=== PATIENT | female | born 1990 | race Caucasian/White ===

== ENCOUNTER 2022-06-19 07:25 | Outpatient (CLI) | payer BC, SELFPAY ==
--- NOTE | 2022-06-19 07:15 | CRLHL7_ITS ---
For Patients: As a result of the Cures Act, medical imaging exams and procedure reports are released immediately into your electronic medical record. You may view this report before your referring provider. If you have questions, please contact your health care provider. INDICATION: First trimester scan, establish dates. COMPARISON: None. TECHNIQUE: Real-time rios-scale imaging of the pelvis was performed. FINDINGS: Sonographic imaging demonstrates a single living intrauterine gestation. The embryo demonstrates a regular cardiac rate measuring 174 beats per minute. The embryo`s crown-rump length measurement of 2.3 cm corresponds to a gestational age of 9 weeks 0 days with a sonographic due date of 01/22/2023. There is a normal-appearing yolk sac. There are no gross abnormalities noted within the embryo at this early state of development. The gestational sac has a normal appearance. There is no evidence of a perigestational hemorrhage. The amount of fluid within the sac appears appropriate for gestational age. The cervix is closed. The myometrium appears normal. The ovaries are of normal size. Corpus luteal cyst right ovary. There are no suspicious fluid collections noted in the cul-de-sac. IMPRESSION: Normal first trimester OB ultrasound exam. Gestational age calculated at 9 weeks 0 days with a sonographic due date of 01/22/2023. Dictated by Moustapha Smith MD @ 06/19/2022 8:24:38 AM (Electronically Signed)
[2022-06-19 11:23] LABS: HIV 1/2/P24 Combo Screen* Negative (Negative)
[2022-06-19 15:27] LABS: Hepatitis B Surface Antigen* Negative (Negative)
[2022-06-19 15:44] LABS: Hepatitis C Virus Antibody* Negative (Negative)
[2022-06-20 17:45] LABS: Rapid Plasma Reagin (RPR) Non Reactive (Non Reactive)
[2022-06-20 23:40] LABS: Rubella Antibody IgG 8.5 IU/mL
== END 2022-06-19 07:26 | disposition home or self-care (01) ==
LOC: US 07:26
PROVIDERS: Visit Provider Physician Assistant
DX: Z34.91 Encounter for supervision of normal pregnancy, unspecified, first trimester (principal); Z3A.09 9 weeks gestation of pregnancy
CPT/HCPCS: 36415; 76817; 86592; 86703; 86762; 86803; 86850; 86900; 86901; 87086; 87340; 87491; 87591

== ENCOUNTER 2022-09-01 07:13 | Outpatient (CLI) | payer BC, SELFPAY ==
--- NOTE | 2022-09-01 07:15 | CRLHL7_ITS ---
For Patients: As a result of the Century Cures Act, medical imaging exams and procedure reports are released immediately into your electronic medical record. You may view this report before your referring provider. If you have questions, please contact your health care provider. INDICATION: Evaluate anatomy. COMPARISON: 06/19/22 TECHNIQUE: Real time rios scale imaging of the fetus was performed as well as color Doppler analysis of the umbilical vessels. FINDINGS: Sonographic imaging demonstrates a single living intrauterine gestation. Fetus demonstrates a regular cardiac rate of 149 beats per minute. Fetus has a vertex position. The placenta lies posteriorly without evidence of placenta previa. The edge of the placenta is located 5.2 cm from the internal cervical os. Amniotic fluid volume appears normal. Single deepest vertical pocket: 4.5 cm. The cervix is closed and measures 4.3 cm in length. The composite ultrasound gestational age is calculated at 20 weeks 0 days with an estimated sonographic due date of 01/19/2023. The estimated weight is 324 grams which lies at the 77th %. The following biometric measurements were obtained: Biparietal diameter: 4.4 cm/19 weeks 1 day 39th% Head circumference: 16.7 cm/19 weeks 3 days 41st% Abdominal circumference: 15.1 cm/20 weeks 2 days 74th% Femur length: 3.2 cm/19 weeks 6 days 56th% The HC/AC ratio measures: 1.11 range (1.08-1.25) On anatomic survey, there is a normal appearance of the cerebral ventricles, cavum septi pellucidi, cisterna magna and cerebellum. The nose, lips, and facial profile appear normal. The cervical, thoracic and lumbar spine are well visualized and appear normal. There is a normal four-chamber heart view and the left and right ventricular outflow tracts appear normal. The diaphragm and stomach appear normal. The kidneys and bladder also appear normal. There is a normal three-vessel cord and cord insertion site. The four extremities appear normal. IMPRESSION: Normal OB ultrasound exam with concordance of clinical and sonographic dating. No intrinsic abnormalities noted on anatomic survey. Dictated by Moustapha Smith MD @ 09/01/2022 10:31:55 AM (Electronically Signed)
== END 2022-09-01 07:14 | disposition home or self-care (01) ==
PROVIDERS: Visit Provider Advanced Practice Midwife
DX: Z34.92 Encounter for supervision of normal pregnancy, unspecified, second trimester (principal); Z3A.20 20 weeks gestation of pregnancy
CPT/HCPCS: 76805

== ENCOUNTER 2022-10-30 08:42 | Outpatient (CLI) | payer BC, SELFPAY ==
[2022-10-31 23:55] LABS: Rapid Plasma Reagin (RPR) Non Reactive (Non Reactive)
== END 2022-10-30 08:43 | disposition home or self-care (01) ==
LOC: NFLDREF 08:43
PROVIDERS: Visit Provider Advanced Practice Midwife
DX: Z34.90 Encounter for supervision of normal pregnancy, unspecified, unspecified trimester (principal)
CPT/HCPCS: 86592

== ENCOUNTER 2023-01-01 09:43 | Outpatient (CLI) | payer BC, SELFPAY ==
[2023-01-02 12:14] LABS: Strep B DNA Probe NEGATIVE (Negative)
[2023-01-02 13:41] LABS: Strep B Pen/Amox Allergy No
== END 2023-01-01 09:44 | disposition home or self-care (01) ==
LOC: NFLDREF 09:43
PROVIDERS: Visit Provider Advanced Practice Midwife
DX: Z34.93 Encounter for supervision of normal pregnancy, unspecified, third trimester (principal); Z3A.36 36 weeks gestation of pregnancy
CPT/HCPCS: 87081; 87653

== ENCOUNTER 2023-01-29 22:01 | Inpatient (IN) | payer BC, SELFPAY ==
[2023-01-29] VITALS (17 sets, daily range): BP systolic 101–126; BP diastolic 65–88; PULSE 74–104; O2SAT 91–99; BMI 31.6
[2023-01-29 22:06] LABS: SARS PCR* Negative SARS-CoV-2 (Negative)
--- NOTE | 2023-01-29 22:32 | W.PM.LDBA ---
Subjective History of Present Illness Time Seen by Provider: 20:45 Date Seen: 01/29/23 Comments: Patient is being admitted to Labor and Delivery for early labor, hx of precipitous . She is a 32 year old at 40.6 weeks gestation. Her full history and physical was dictated by Mela on 01/08/23. Please see this for details. She was seen in the office today for an appointment. Ctx started yesterday, continued through last night, but she was able to sleep. This morning ctx seemed more spaced out, but stronger. She did have a membrane sweep in the office today. This afternoon, ctx noted to be more intense. ? She is coping well with labor pain/contractions. Her partner is with her for support. She is planning epidural for pain management. OB Problem List: H&P done by [facility] on 01/08/23 1. Family history of Down syndrome, patient's brother recently had a child the Down syndrome Maternity T21: neg, boy! 2. Rubella nonimmune MMR 3. Lower back pain - PT referral 10/02/22 4. History of heavy epidurals - would like to discuss light epidural with anesthesia - consult done 12/09 5. Wants expectant management at 41 weeks BPP scheduled for 01/29 OB - Problem Based A/P Additional Plan (1) Uterine contractions: Status: Acute (2) History of vacuum extraction assisted delivery: Status: Acute Plan at 40.6 weeks GBS neg Early labor Hx of precipitous Hx of vacuum assisted r/t FHTs problems: -Rubella non immune, needs vaccine PP 1. Admit to L & D 2. Monitoring per protocol, intermittent at this time, continuous once epidural placed 3. IV placed for epidural 4. Candidate for analgesia of choice. Planning epidural for pain management. Does not want it to be very dense, as it has been in the past. 5. Anticipate progress to NVD. Delivery/Labor/Induction Plan Plan: expectant management OB Exam Physical Exam Vital signs: Pulse BP 82 115/78 01/29/23 20:40 01/29/23 20:40 Narrative: VSS, afebrile? General Appearance:? Calm, cooperative.? No acute distress.? Normal affect.? Psychiatric Exam: Alert and oriented, appropriate affect? HEENT: normocephalic, neck supple, full ROM? Respiratory:? Symmetrical chest wall movement.? Normal respiratory effort.? Clear to auscultation? Cardiac:? regular rate and rhythm? Abdomen: Gravid, non tender? Extremities:? normal and trace edema? Skin: warm, dry.??? Ctx:? irregular, not tracing well on monitor. Q 5 mins per pt. Stops to breathe through them when they occur FHTs:? Baseline: 140.? Variability: mod.?? Accels: present.??? Decels:? none.? SVE: ?/ Membranes: intact? Detailed Labor and Delivery Exam Patient Gravid: Yes
[2023-01-29] MEDS: LACTATED RINGERS 1000 ML 1,000 ML IV (22:53)
[2023-01-29] MEDS: ROPIVACAINE 0.2% 100 ml 100 ML 12 MG EPIDURAL (23:32)
[2023-01-29] MEDS: ROPIVACAINE 0.2 % PF 10 ML INJ 20 MG EPIDURAL (23:33)
--- NOTE | 2023-01-29 23:38 | P.ANBPRC_ITS ---
[facility] Medical History History of abnormal cervical Papanicolaou smear (2010) History of vaginal delivery Injury of back (08/01/12) Vacuum-assisted vaginal delivery Surgical History History of colposcopy (2011) Family History Father Celiac disease Brother Celiac disease High blood pressure Ulcerative colitis Maternal Grandmother Diabetes Parkinson's disease Mother Infertility Paternal Grandmother Stomach cancer Social History (Updated 01/08/23 @ 13:34 by Lillian Kraus CNM) Narrative: SOCIAL HISTORY: Occupation: Poultry Processor. Marital status: , Alexi. Taoist/cultural needs: No. Chemical or radiation exposure: no. Pre- tobacco use: no. Pre- alcohol use: Less than 1 per day. Current tobacco use: no. Current alcohol use: no. Recreational drug use: no. Dietary restrictions: Gluten free. Blood transfusion acceptable in an emergency: yes . FAMILY AND GENETIC HISTORY: Negative for recurrent loss, defects. Her brother recently had a baby with Down syndrome PSYCHOSOCIAL HISTORY: History of depression or currently depresses: no. Current physical, emotional, or sexual mistreatment: no. Problems that will make it hard to make it to appointments: no. Smoking Status: Never smoker Little interest or pleasure in doing things: not at all Feeling down, depressed, or hopeless: not at all Meds Home Medications and Allergies Home Medications Medication Instructions Recorded Confirmed Type docosahexaenoic acid 200 mg 200 mg PO DAILY 06/19/22 01/29/23 History capsule ( DHA) Allergies Allergy/AdvReac Type Severity Reaction Status Date / Time gluten AdvReac Mild Gastrointestinal Verified 01/29/23 11:40 Upset Results Labs Labs: Laboratory Results - last 24 hr 01/29/23 19:31 SARS-CoV-2 (PCR) Negative SARS-CoV-2 Vital Signs Vital Signs: Last Vital Signs Pulse 88 01/29/23 23:37 BP 112/74 01/29/23 23:37 Pulse Ox 98 01/29/23 23:37 Weight: 91.626 kg Height: 170.18 cm Anesthesia Procedures Epidural Insertion Patient Location: OB Start Time: 22:50 Stop Time: 23:38 Start Date: 01/29/23 Stop Date: 01/29/23 Reason for Block: procedure for pain Patient Position: sitting Performed By: Fritz Montoya Preanesthetic Checklist: IV checked, risks and benefits discussed, surgical consent, monitors and equipment checked, pre-op evaluation, timeout performed and anesthesia consent Prep: chlorhexidine gluconate Monitoring: blood pressure monitoring, continuous pulse oximetry and heart rate Approach: midline Vertebral Space: lumbar (1-5) Epidural Technique: SHAWNA air Needle Type: Tuohy needle Injection Technique: continuous catheter Needle gauge: 17 Needle Length (cm): 10 cm Needle Insertion Depth (cm): 7 Catheter Gauge: 19 Catheter Type: multi-orifice Catheter at skin depth (cm): 13 Test Dose Result: negative and lidocaine 1.5% with epinephrine 1 to 200,000
[2023-01-30] VITALS (27 sets, daily range): BP systolic 81–140; BP diastolic 50–80; PULSE 65–123; RESP 16; TEMP 36.6–37.2; O2SAT 96–98
--- NOTE | 2023-01-30 02:08 | W.PM.OBVAGDE ---
OB Procedure Vag Delivery Mother Details Mother Details: The patient is a 32 year-old, 3, Para 2, admitted on 01/29/23 at 40.6 Days gestation. Delivery occurred at 41 weeks : 3 Para: 3 Weeks Gestation: 41.0 Admission Date: 01/29/23 Additional Details Amniotic Membrane Status: SROM Amniotic Membrane Rupture Date: 01/30/23 Amniotic Membrane Rupture Time: :18 Amniotic Membrane Fluid Description: Meconium Stained (light) Analgesia/Anesthesia Type: Epidural Waterbirth: No Pitcoin: No Labor Onset: 19:00 Complete: :18 Pushin:21 Heart: heart tones during second stage were difficult to trace. Decel noted to the 50s, Dr. Manley called to bedside to evaluate for a vacuum. Pt turned more to left side, and instructed to push. FHTs noted to improve somewhat. Down to 70-80s w/ ctx & pushing, return to baseline 100-120s un between ctx. Good descent noted. Delivery occurred prior to Dr. Manley arriving at the bedside. Delivery Details Delivery Date: 01/30/23 Delivery Time: :34 Route of delivery: Gender: Male Viability: Alive; Heart Rate Present Position at Delivery: OP Delivery Details: Called to bedside by RN. Pt feeling increased pressure, SVE, noted to be complete per RN. SROM occurred the process of SVE. Light mec noted. FHT decels noted, turned to left side. Improvement noted between ctx. Good descent noted w/ pushing. At 0134 a viable?male delivered in vertex direct OP presentation over intact perineum via spontaneous vaginal?delivery. ? was placed on maternal abdomen. ?Cord was clamped and cut after a 5+ minute delay.? Nose and mouth were bulb suctioned.? weight pending. ? 8 at 1 minute and 9 at 5 minutes. ?Shoulder dystocia: no. ?Nuchal cord: Yes, X2. 1st loop reduced. 2nd loop noted as was delivering, delivered through. Placenta delivered spontaneously and complete at 0143 with a 3 vessel cord. Mother and infant were stable after?delivery. Lacerations:? 1st degree, not bleeding, not repaired Blood loss: 50 mL. Blood loss measurement type: ? QBL Sponge and needles counts are correct. 1 Minute Interval Total Score: 8 5 Minute Interval Total Score: 9 Additional Details Shoulder Dystocia: No Placenta Delivery Time: 01:43 Placental Delivery Description: Spontaneous Procedure Done: Global Blood Loss: 50 Laceration: Perineal - 1st Degree (not bleeding, not repaired) Blood Loss Measurement Type: QBL Bakri Used: No Sponge/Need Count Correct: Yes Cord Vessel Description: 3 Vessels, Nuchal Cord (X2, reduced 1st, delivered through 2nd), Reduced and Delivered through Event Summary Status: Mother and infant were stable after delivery. Disposition: floor
[2023-01-30] MEDS: DOCUSATE SODIUM 100 MG CAPSULE PO (08:38)
[2023-01-30] MEDS: MEASLES,MUMPS,RUBELLA VACC/PF 1 DOSE INJ 1 EACH SUBCUT (13:13)
[2023-01-31 03:15] VITALS: BP 106/74; PULSE 57; RESP 16; TEMP 36.6; O2SAT 97
[2023-01-31 08:00] VITALS: BP 114/80; PULSE 75; RESP 16; TEMP 36.5; O2SAT 97
[2023-01-31] MEDS: DOCUSATE SODIUM 100 MG CAPSULE PO (10:36)
--- NOTE | 2023-01-31 11:47 | PM.OBPNVD1 ---
OB - PN:Subj Subjective Time Seen by Provider: 11:47 Date Seen: 01/31/23 Interval history: Ariela is a 32 y.o. who was admitted to L & D for labor. She had an uncomplicated NVD. Patient comments OB post-: no complaints, pain well controlled, tolerating diet and flatus present [place] status: doing well [place] feeding status: exclusively Narrative: The patient feels well. The pain is well controlled with current medications. She has no new complaints. She is breast feeding and reports things are over all going well. Baby has been sleepy this last feed, and she pumped and is syringe feeding at this time.? the patient has done well.? Vitals have been stable.? She has remained afebrile.? Has a good appetite, is tolerating a general diet. She is voiding without difficulty.? She is passing gas and has had a bowel movement.? She is ambulating and denies any dizziness.? Has Small amount of rubra lochia. Baby is currently being evaluated for failing CCHD. Awaiting echo results. Discharge instructions reviewed and can be discharged if baby is transferred or cleared. OB - PN: Obj Exam Physical Exam: Vital signs: Temp Pulse Resp BP Pulse Ox O2 Del Method 97.8 F 57 L 16 106/74 97 Room Air 01/31/23 03:15 01/31/23 03:15 01/31/23 03:15 01/31/23 03:15 01/31/23 03:15 01/31/23 03:15 Narrative: GENERAL APPEARANCE: normal affect, alert, no distress MOOD: appropriate HEENT: normocephalic, neck supple, full ROM CHEST: Symmetrical chest wall movement. Normal respiratory effort. Clear to auscultation HEART: regular rate and rhythm ABDOMEN: soft, non-tender. Uterine fundus is firm, 3 below Umbilicus, Midline and is appropriate for the stage of recovery. Bowel sounds present. PERINEUM: mild edema of the perineum, there is a 1st degree laceration that is healing well. EXTREMITIES: normal and +1 edema OB - PN: A/P Vaginal Delivery Assessment and Plan (1) Uterine contractions: Status: Acute (2) History of vacuum extraction assisted delivery: Status: Acute Plan day: 1 Plan: routine care Comments: G 3 P 3 status post uncomplicated NVD 1. Continue route PP cares 2. . May see if desired 3. Anticipate discharge home tomorrow. May go today if baby is cleared to go home or transferred.
--- NOTE | 2023-01-31 13:24 | PM.OBDSVD1 ---
DS: Providers Provider Time Seen by Provider: 13:24 Date Seen: 01/31/23 Date of admission: 01/29/23 22:01 Primary care physician: Not a Local Provider Admitting Clinician: Micaela Ordoñez CNM Attending Physician on discharge: Micaela Ordoñez CNM DS: Diagnosis Discharge Diagnosis (1) NVD (normal vaginal delivery): Status: Acute (2) First degree perineal laceration: Status: Acute Exam Narrative: Exam Narrative: GENERAL APPEARANCE:? normal affect, alert, no distress MOOD:? appropriate HEENT: normocephalic, neck supple, full ROM CHEST:? Symmetrical chest wall movement.? Normal respiratory effort.? Clear to auscultation HEART:? regular rate and rhythm ABDOMEN:? soft, non-tender. Uterine fundus is firm, 3 below Umbilicus, Midline and is appropriate for the stage of recovery.? Bowel sounds present. PERINEUM:? mild edema of the perineum, there is a 1st degree laceration that is healing well. EXTREMITIES:? normal and +1 edema Const: Vital Signs, click to edit/add: Vital Signs - 24 hr 01/30/23 15:12 01/30/23 20:31 01/30/23 23:32 Temperature 98.2 F 98.1 F 97.8 F Pulse Rate [Right Pulse Oximeter] 77 73 70 Respiratory Rate 16 16 16 Blood Pressure [Ri ght Arm] 118/75 116/74 113/73 Pulse Oximetry 98 97 96 Oxygen Delivery Me thod Room Air Room Air Room Air 01/31/23 03:15 01/31/23 08:00 Temperature 97.8 F 97.7 F Pulse Rate [Right Pulse Oximeter] 57 L 75 Respiratory Rate 16 16 Blood Pressure [Ri ght Arm] 106/74 114/80 Pulse Oximetry 97 97 Oxygen Delivery Me thod Room Air Room Air Documenting provider has reviewed patient's vital signs: yes OB - DS: Summary Hospital Course Hospital Course: Martina is a 32 y.o. G 3 P 3 who was admitted to L & D for labor. ?She had an uncomplicated NVD The patient feels well. ?The pain is well controlled with current medications. ?She has no new complaints. ?She is breast feeding and reports things are going well.? the patient has done well.? Vitals have been stable.? She has remained afebrile.? Has a good appetite, is tolerating a general diet. ?She is voiding without difficulty.? She is passing gas and has had a bowel movement.? She is ambulating and denies any dizziness.? Has Small amount of rubra lochia. She is planning NFP for prevention. Problems: none plan: Discharge home. Baby being transferred to NICU Follow up in 2 weeks and 6 weeks. , may follow up with if needed Peripartum Data delivery method: Vaginal Laceration description: Perineal - 1st Degree complications: none Infant Gender: Male Discharge Plan: Transferred to NICU Status at Discharge Functional status at discharge: independent ambulation Overall status at discharge: patient is progressing back to baseline Time Spent with Patient Time attestation: Total time spent providing and/or coordinating discharge services: Time spent: Less than 30 minutes Discharge Plan Discharge Disposition: Home, Self-Care Date of Admission: 01/29/23 22:01 Attending Provider on Discharge: Micaela Ordoñez Primary Care Provider: Provider,Not a Local Condition: Stable Anticipated Discharge Date/Time: 01/31/23 14:43 Discharge Medications: New docusate sodium 100 mg Capsule 100 mg PO BID PRNQty: 100 0RF Rx Instructions: Take 1 cap 1-2 times a day as needed for constipation ibuprofen 600 mg Tablet 600 mg PO Q6H PRNQty: 60 0RF Continued DHA 200 mg capsule 200 mg PO DAILY Discharge Orders: Discharge Order (Routine); Ordered 01/31/23 Ordered By: Micaela Ordoñez Patient Education: OB Over the Counter Medication Information, OB Vaginal/Breast Feeding Additional Instructions: Follow up in 2 weeks and 6 weeks Activity Level: Activity as Tolerated Discharge Diet: Regular Follow Up Appointments: Provider,Not a Local [Primary Care Provider] - Forms: [employer] Info Instructions
== END 2023-01-31 16:25 | disposition home or self-care (01) | DRG 560 ==
LOC: OB OUT 02-01 16:03
PROVIDERS: Admitting Provider Advanced Practice Midwife; Visit Provider Advanced Practice Midwife
DX: O70.0 First degree perineal laceration during delivery (principal); Z3A.41 41 weeks gestation of pregnancy; Z37.0 Single live birth
CPT/HCPCS: 01967; 76816; 76819; 87635; 99213; A9270; J2370; J2795; J7120

== ENCOUNTER 2025-04-18 13:49 | Outpatient (CLI) | payer BC, SELFPAY | END 2025-04-18 13:50 | disposition home or self-care (01) | PROVIDERS: Visit Provider Midwife | DX: Z01.419 Encounter for gynecological examination (general) (routine) without abnormal findings (principal); E34.9 Endocrine disorder, unspecified | CPT/HCPCS: 82306; 82627; 83520; 84270; 84403 ==

== ENCOUNTER 2025-06-01 08:14 | Outpatient (CLI) | payer BC, SELFPAY ==
--- NOTE | 2025-06-01 08:15 | CRLHL7_ITS ---
For Patients: As a result of the Cures Act, medical imaging exams and procedure reports are released immediately into your electronic medical record. You may view this report before your referring provider. If you have questions, please contact your health care provider. OB ULTRASOUND INDICATION: Dating and viability. TECHNIQUE: Real time grayscale imaging of the fetus was performed. Transvaginal. Transvaginal imaging performed to better demonstrate the endometrium and ovaries. LMP: 03/30/2025. MELVA by LMP: 01/04/2026. GA: 9 w, 0 d. Previous US: No. CRL: 2.3 cm. 9 w 0 d. MELVA: 01/04/2026. FHR: 180 BPM. Gestational sac: 4.0 cm. Appears within normal limits. Yolk sac: 3.6 mm. Appears within normal limits. Right ovary: 3.7 x 2.4 x 2.8 cm. Left ovary: N/V. IMPRESSION: Single living intrauterine measuring 9 weeks 0 days and sonographic due date 01/04/2026. Moustapha Smith M.D. Diagnostic Radiologist [email or web address] siddiqui/Dictated by: Moustapha Smith MD @ 06/03/2025 9:17:00 PM (Electronically Signed)
== END 2025-06-01 08:15 | disposition home or self-care (01) ==
LOC: US 08:15
PROVIDERS: Visit Provider Advanced Practice Midwife
DX: Z34.91 Encounter for supervision of normal pregnancy, unspecified, first trimester (principal); Z3A.09 9 weeks gestation of pregnancy
CPT/HCPCS: 76817; 83021; 86592; 86703; 86704; 86706; 86762; 86787; 86803; 87086; 87340

== ENCOUNTER 2025-06-01 09:39 | Outpatient (CLI) | payer BC, SELFPAY | END 2025-06-01 09:40 | disposition home or self-care (01) | PROVIDERS: Visit Provider Advanced Practice Midwife | DX: Z34.91 Encounter for supervision of normal pregnancy, unspecified, first trimester (principal); Z3A.09 9 weeks gestation of pregnancy | CPT/HCPCS: 83020; 83021; 85660; 86592; 86703; 86704; 86706; 86762; 86787; 86803; 87086; 87340 ==

== ENCOUNTER 2025-10-17 13:55 | Outpatient (CLI) | payer BC, SELFPAY | END 2025-10-17 13:56 | disposition home or self-care (01) | LOC: NFLDREF 10-22 10:08 | PROVIDERS: Visit Provider Advanced Practice Midwife | DX: Z34.93 Encounter for supervision of normal pregnancy, unspecified, third trimester (principal) | CPT/HCPCS: 86780 ==